=== PATIENT | male | born 1975 | race Caucasian/White ===

== ENCOUNTER 2018-05-24 19:14 | Emergency (ER) | payer OTHER ==
[~2018-05-24 19:14] MED LIST: CEPH500C24 PO; ESC10 PO; HYDR-653 PO; IBUP-136 PO
[2018-05-24 19:21] VITALS: BP 143/101
--- NOTE | 2018-05-24 19:26 | ER Report ---
History and Physical Time Seen By MD: 19:23 Hx. of Stated Complaint: MIDDLE 3RD FINGER LACERATION, SMALL AMOUNT OF OOZING, UP TO DATE TETANUS. HPI/ROS CHIEF COMPLAINT: Right long finger laceration HISTORY OF PRESENT ILLNESS: 43-year-old male presents ambulatory to the ER with a laceration to his right long finger. Patient was injured at work. He was sent in by his boss to have his finger evaluated and fixed. Patient states his tetanus shots up-to-date from a year ago. Allergies: Coded Allergies: latex (Verified Allergy, Intermediate, RASH, 05/24/18) STATES IT IS JUST AT LITTLE RASH Home Meds Discontinued Reported Medications Ibuprofen (IBUPROFEN) Unknown Strength Capsule, 1 CAP PO PRN PRN for PAIN, CAPSULE 05/09/16 Hx Smoking: No Smoking Status: Never Smoker Exposure to Second Hand Smoke?: No Hx Substance Use Disorder: No Hx Alcohol Use: Yes (OCC) Constitutional Vital Sign - Last 24 Hours 05/24/18 19:21 Temp 97.7 Pulse 99 Resp 16 B/P (MAP) 143/101 Pulse Ox 94 O2 Delivery Room Air Physical Exam General appearance: Alert no distress. Respiratory: Chest is non tender, lungs are clear to auscultation. Cardiac: Regular rate and rhythm Extremities: Examination of right index finger reveals a small laceration adjacent to the nail. It does not involve any nail damage. The fingertip is neurovascularly intact. Proximal joints are damage straining full range of motion. DIFFERENTIAL DIAGNOSIS: After history and physical exam differential diagnosis was considered for finger laceration, foreign body, tendon injury, joint injury Medical Decision Making ED Course/Re-evaluation ED Course Patient was admitted to an examination room. H&P was done. The differential diagnoses was considered. On clinical examination. Patient has a finger laceration. His tetanus status is up-to-date. The laceration was repaired as noted below. Wound care was discussed, suture removal will be in 10 days. Procedure: Laceration repair. Verbal consent was obtained from the patient. The 1.0 cm laceration on the right index finger was anesthetized in the usual fashion. The wound was scrubbed, draped and explored to its base with a gloved finger. There were no deep structures involved. No tendon injury was identified. The wound was repaired with 5-0 Prolene 2 sutures. The wound repair was simple. The procedure was performed by myself. Decision to Disposition Date: May 24, 2018 Decision to Disposition Time: 19:59 Depart Departure Latest Vital Signs Vital Signs Date Time Temp Pulse Resp B/P (MAP) Pulse Ox O2 Delivery O2 Flow Rate FiO2 05/24/18 19:21 97.7 99 16 143/101 94 Room Air Impression: Primary Impression: Finger laceration Condition: Improved Disposition: HOME OR SELF-CARE Referrals: ASIYA COTE DO (PCP) Patient Instructions: Finger Laceration (ED) Additional Instructions: Perform daily wound care Cover with a Band-Aid daily Have your stitches removed in 10 days Problem Qualifiers Primary Impression: Finger laceration Encounter type: initial encounter Finger: middle finger Damage to nail status: with damage Foreign body presence: without foreign body Laterality: right Qualified Codes: S61.312A - Laceration without foreign body of right middle finger with damage to nail, initial encounter JOSELO PENA DO May 24, 2018 19:26
== END 2018-05-24 20:31 | disposition home or self-care (01) ==
LOC: ER 19:44
DX: S61.212A Laceration without foreign body of right middle finger without damage to nail, initial encounter (principal)
CPT/HCPCS: 99283

== ENCOUNTER 2018-06-02 09:12 | Emergency (ER) | payer OTHER ==
--- NOTE | 2018-06-02 09:14 | ER Report ---
History and Physical Time Seen By MD: 09:14 HPI/ROS CHIEF COMPLAINT: Encounter for suture removal HISTORY OF PRESENT ILLNESS: Patient is a 43-year-old male here with for suture removal of the right 3rd distal digit which he cut accidentally while at work on May 24. 2 sutures were placed for repair. No signs of erythema or infection are present. REVIEW OF SYSTEMS: Constitutional: No fever, no chills. Musculoskeletal: No digit pain Skin: No rashes. Neurological: NV intact Allergies: Coded Allergies: latex (Verified Allergy, Intermediate, RASH, 05/24/18) STATES IT IS JUST AT LITTLE RASH Home Meds No Active Prescriptions or Reported Meds Hx Smoking: No Smoking Status: Never Smoker Exposure to Second Hand Smoke?: No Hx Substance Use Disorder: No Hx Alcohol Use: Yes (OCC) Constitutional Vital Sign - Last 24 Hours 06/02/18 06/02/18 09:16 09:35 Temp 97.8 Pulse 82 85 Resp 18 B/P (MAP) 147/93 142/90 (107) Pulse Ox 96 95 O2 Delivery Room Air Physical Exam General Appearance: The patient is alert, has no immediate need for airway protection and no signs of toxicity. NAD Neurological: NV intact in digit Skin: Warm and dry, no rashes, well healed laceration of right 3rd distal digit Musculoskeletal: Extremities are nontender, nonswollen and have full range of motion. DIFFERENTIAL DIAGNOSIS: After history and physical exam differential diagnosis was considered for suture removal Medical Decision Making ED Course/Re-evaluation ED Course Patient is a 43-year-old male here for suture removal of the 2 sutures which were placed on May 24 in the distal right 3rd digit for laceration repair. No signs of infection are present, the wound is well-healed. Patient has no pain and is neurovascularly intact at time of evaluation. Sutures were removed and no bleeding was present. Decision to Disposition Date: Jun 02, 2018 Decision to Disposition Time: 09:22 Depart Departure Latest Vital Signs Vital Signs Date Time Temp Pulse Resp B/P (MAP) Pulse Ox O2 Delivery O2 Flow Rate FiO2 06/02/18 09:35 85 142/90 (107) 95 Room Air 06/02/18 09:16 97.8 18 Impression: Primary Impression: Encounter for removal of sutures Condition: Improved Disposition: HOME OR SELF-CARE Referrals: ASIYA COTE DO (PCP) New Scripts No Active Prescriptions or Reported Meds Additional Instructions: Please return promptly if he develops signs of infection such as swelling, redness, drainage, fevers. JOEL BOWER DO Jun 02, 2018 09:14
[2018-06-02 09:35] VITALS: BP 142/90
== END 2018-06-02 10:25 | disposition home or self-care (01) ==
LOC: ER 09:22
DX: S61.212D Laceration without foreign body of right middle finger without damage to nail, subsequent encounter (principal)
CPT/HCPCS: 99281